=== PATIENT | female | born 1950 | race Caucasian/White ===

== ENCOUNTER 2022-07-07 04:31 | Day surgery (SDC) | payer OTHER, MEDICARE ==
[2022-07-05 13:11] VITALS: BMI 29.7
[2022-07-07 09:17] VITALS: BP 155/89; PULSE 67; RESP 19; TEMP 98
== END 2022-07-07 10:15 | disposition home or self-care (01) ==
LOC: JASU-ENDO 04:31
PROVIDERS: ATTEND Internal Medicine Gastroenterology
PROC: 0DBN8ZX Excision of Sigmoid Colon, Via Natural or Artificial Opening Endoscopic, Diagnostic (ICD-10-PCS; 2022-07-07)
PROC: 0DBP8ZZ Excision of Rectum, Via Natural or Artificial Opening Endoscopic (ICD-10-PCS; principal; 2022-07-07 08:00)
DX: Z12.11 Encounter for screening for malignant neoplasm of colon (principal); D12.8 Benign neoplasm of rectum; K59.89 Other specified functional intestinal disorders; K64.8 Other hemorrhoids; I10 Essential (primary) hypertension
CPT/HCPCS: 88305-TC